=== PATIENT | male | born 1975 | race Caucasian/White ===

== ENCOUNTER 2019-12-21 12:09 | Emergency (ER) | payer OTHER, SELFPAY ==
--- NOTE | ~2019-12-21 | XR_ITS ---
EXAMINATION: XR chest 2V DATE: 12/21/2019 12:52 INDICATION: Cough. TECHNIQUE: Frontal and lateral views of the chest were obtained. COMPARISON: None. FINDINGS: The chest demonstrates clear lungs without pneumonia, pleural effusion, or pneumothorax. Th e heart size is normal. IMPRESSION: 1. No acute cardiopulmonary disease. Reviewed, dictated and finalized at location A. [employer]
[2019-12-21 12:24] VITALS: BP 151/85; PULSE 77; RESP 16; TEMP 36.9; O2SAT 98
--- NOTE | 2019-12-21 12:56 | ED.URI ---
HPI - URI/Sore Throat General Chief Complaint: Upper Respiratory Infection Stated Complaint: Cold/Flu symptoms Time Seen by Provider: 12/21/19 12:36 Source: patient and RN notes reviewed Mode of arrival: ambulatory Limitations: no limitations History of Present Illness HPI Narrative: Patient presents today with a 3-month history of productive cough, nasal congestion and sinus pressure, headache, fatigue, back pain, chest wall pain. Symptoms have been persistent for the past 3 months, but wax and wane. He was seen on 10/19/2019 at the [facility], where he was diagnosed with pharyngitis, with a negative strep test, and given prescription for prednisone and naproxen. Patient states medications did not help with his symptoms. He is unsure if he has had a fever. He has been taking ibuprofen. He is a non-smoker. He does not vape. He has not followed up with his PCP since his last urgent care visit. MD elicited complaint: cough Related Data Allergies Allergy/AdvReac Type Severity Reaction Status Date / Time Penicillins Allergy Unknown Anaphylaxis Verified 10/19/19 12:51 Review of Systems Review of Systems: Narrative: CONSTITUTIONAL: Denies fever, chills, or sweats.+ Fatigue, body aches EYES: Denies visual changes, redness, or discharge. ENT: Denies rhinorrhea, sore throat, or otalgia.+ Congestion, sinus pressure CARDIOVASCULAR: Denies chest pain, palpitations, or edema. RESPIRATORY: Denies dyspnea. Cough GASTROINTESTINAL: Denies abdominal pain, nausea, vomiting, or diarrhea. GENITOURINARY: Denies dysuria or hematuria. SKIN: Denies rash, itching, or wounds. MUSCULOSKELETAL: Denies back pain, joint pain, or myalgia. NEUROLOGIC: Denies numbness, tingling, or weakness.+ Headache PSYCH: Denies depression or anxiety. PMFSH Social History Social History Smoking status: Never smoker Alcohol intake: current Comments At time of signature, I have reviewed and agree with nursing past medical, surgical, social and family history unless otherwise noted. Please see nursing chart for further information. There is no relevant family history pertinent to the presenting complaint Exam Narrative: Exam Narrative: GENERAL: Mildly ill-appearing, well-nourished, and in no acute distress. HEAD: Normocephalic, atraumatic. EYES: EOMI. No redness or drainage. Conjunctivae normal. ENT: Mucous membranes pink and moist. Nares congested. No rhinorrhea. TMs normal bilaterally. Throat normal. Uvula midline. NECK: Normal AROM. Supple. No lymphadenopathy. CHEST: No respiratory distress. Clear to auscultation. Occasional cough noted. HEART: Regular rate and rhythm. No murmur appreciated. Normal peripheral pulses. EXTREMITIES: Normal range of motion. No edema. SKIN: Warm, dry, no rash. NEURO: No focal deficits. Alert and oriented x3. Gait steady. PSYCH: Normal affect. No signs of depression or anxiety. Course Vital Signs Vital signs: Reviewed. Pt has been instructed to follow up with his PCP regarding his elevated blood pressure today. MDM - URI/Sore Throat Differential Diagnosis Differential diagnosis: Likely upper respiratory infection, sinusitis, viral infection, bronchitis and other (Pneumonia) Imaging Data Radiologist's impression: ITS Impressions Chest X-Ray 12/21/19 12:55 IMPRESSION: 1. No acute cardiopulmonary disease. Critical Care Time Critical Care Time Critical Care Time: No Discharge Plan Discharge Clinical Impression: Bronchitis Sinusitis Qualifiers: Sinusitis location: unspecified location Chronicity: acute Recurrence: not specified as recurrent Qualified Code(s): J01.90 - Acute sinusitis, unspecified Patient Disposition: Home, Self-Care Condition: Stable Instructions: Antibiotic Form, Sinusitis (ED), Acute Bronchitis (ED) Additional Instructions: Your chest x-ray is negative for pneumonia today. Please take the doxycy
== END 2019-12-21 13:15 | disposition home or self-care (01) ==
PROVIDERS: Emergency Provider Nurse Practitioner; PCP Family Medicine
DX: J40 Bronchitis, not specified as acute or chronic (principal); J01.90 Acute sinusitis, unspecified
CPT/HCPCS: 71046; 99213; G0463

== ENCOUNTER 2021-04-19 13:42 | Outpatient (CLI) | payer OTHER, SELFPAY ==
--- NOTE | ~2021-04-19 | XR_ITS ---
XR chest 2V DATE: 04/19/2021 14:02 INDICATION: Cough, right anterior chest pain. TECHNIQUE: PA and lateral views COMPARISON: 12/21/2021 view chest FINDINGS: Borderline heart size. Mild elevation of right leaf of diaphragm. No pulmonary infiltrate or consolidation, pleural effusion or pulmonary vascular congestion or pneumo thorax. Included skeletal structures are unremarkable. IMPRESSION: Borderline heart size; no active pulmonary disease Reviewed, dictated and finalized at location A.
== END 2021-04-19 13:43 | disposition home or self-care (01) ==
LOC: ANHIMG 13:46
PROVIDERS: PCP Family Medicine; Visit Provider Family Medicine
DX: R05 Cough (principal); R07.89 Other chest pain
CPT/HCPCS: 71046

== ENCOUNTER 2022-03-05 10:53 | Emergency (ER) | payer OTHER, SELFPAY ==
[2022-03-05 11:01] VITALS: BP 153/89; PULSE 110; RESP 16; TEMP 36.7; O2SAT 98
--- NOTE | 2022-03-05 11:01 | ED.URI ---
HPI - URI/Sore Throat General Chief Complaint: Upper Respiratory Infection Stated Complaint: Sore Throat Time Seen by Provider: 03/05/22 11:01 Source: patient, family, RN notes reviewed and old records reviewed Mode of arrival: ambulatory Limitations: no limitations History of Present Illness HPI Narrative: 47-year-old male presents to the [facility] with a sore throat since March 02, 3 days ago. Had taken ibuprofen 1 time yesterday. States that it feels like I am swallowing razor blades. Denies fevers. No chest pain or abdominal pain. No nausea vomiting or diarrhea. MD elicited complaint: sore throat Related Data Home Medications Medication Instructions Recorded Confirmed omeprazole 20 mg capsule,delayed 20 mg PO DAILY 02/10/21 03/05/22 release Allergies Allergy/AdvReac Type Severity Reaction Status Date / Time Penicillins Allergy Severe Anaphylaxis Verified 03/05/22 11:11 Review of Systems Review of Systems: All systems reviewed & are unremarkable except as noted in HPI and below Constitutional: Constitutional: Reports no additional constitutional complaints, Denies chills, Denies fever(s) and Denies headache(s) Eyes: Eyes: Reports no additional eye complaints ENT: Reports as per HPI, Denies vertigo, Denies dizziness, Denies headache(s), Denies nasal congestion and Reports sore throat Cardiovascular: Cardiovascular: Reports no additional cardiovascular complaints, Denies chest pain, Denies syncope, Denies rapid heart rate and Denies dyspnea Respiratory: Respiratory: Reports no additional respiratory complaints, Denies cough, Denies dyspnea and Denies wheezing Gastrointestinal: Gastrointestinal: Reports no additional gastrointestinal complaints, Denies abdominal pain, Denies diarrhea, Denies nausea and Denies vomiting Musculoskeletal: Musculoskeletal: Reports no additional musculoskeletal complaints and Denies numbness Integumentary/Breasts: Skin/Breast: Reports system reviewed and no additional complaints, except as docu Neurologic: Reports system reviewed and no additional complaints, except as documented, Denies vertigo, Denies dizziness, Denies syncope, Denies headache(s), Denies focal weakness and Denies numbness Psychiatric: Psychiatric: Reports no additional psychiatric complaints Allergic/Immunologic: Allergic/Immunologic: Reports no additional allergic/immunologic complaints and Denies wheezing PMFSH Past Medical History Medical History Alcohol abuse Depression GERD (gastroesophageal reflux disease) HTN (hypertension) Family History Family History Father Depression Patient's father is in good health RAMBO (obstructive sleep apnea) Mother Family history of alcoholism Sibling Patient's sister is in good health Grandparent Heart disease Social History Social History Social History: Second hand tobacco smoke exposure: No Alcohol intake: current Drinks per week: 2 Substance use: never Substance use type: does not use Additional occupation/education comments: [employer] Gender identity (if verbalized by the patient): Male Comments At the time of my signature, I reviewed and agree with the nursing past medical, surgical, social, and family history. There is no relevant family history pertinent to the patient complaint. Exam Const: General: cooperative, healthy appearing, no acute distress, well developed and alert Nutritional Appearance: well nourished Orientation/consciousness: patient oriented x3 Limitations: no limitations HENMT: Head: normal to inspection Ears: external ears normal, TM's normal bilaterally and EAC's normal General nose exam: Normal external nose present and Normal nasal mucous membranes and turbinates present Face and sinus: normal facial exam Mouth: Yes Normal oral and p
== END 2022-03-05 11:32 | disposition home or self-care (01) ==
PROVIDERS: Emergency Provider Nurse Practitioner; PCP Family Medicine
DX: K12.2 Cellulitis and abscess of mouth (principal); K21.9 Gastro-esophageal reflux disease without esophagitis; I10 Essential (primary) hypertension
CPT/HCPCS: 87081; 87880; 99213; G0463

== ENCOUNTER 2023-06-27 07:14 | Outpatient (CLI) | payer OTHER, SELFPAY ==
--- NOTE | 2023-06-27 07:47 | ECG_ITS ---
Measurements Intervals [place] Rate: 80 P: 29 VA: 170 QRS: 6 QRSD: 103 T: 30 QT: 380 QTc: 439 Interpretive Statements SINUS RHYTHM INDETERMINATE AXIS PATTERN CONSISTENT WITH PULMONARY DISEASE ABNORMAL ECG NO PREVIOUS ECG AVAILABLE FOR COMPARISON Electronically Signed On 06-27-2023 9:17:56 CDT by Bhanu Dial M.D.
[2023-06-27 08:12] LABS: Potassium 3.5 mmol/L (3.4-5.0)
[2023-06-27 08:19] LABS: Anion Gap 6 mmol/L (8-16); Blood Urea Nitrogen 7 mg/dL (9-20); Calcium 8.7 mg/dL (8.4-10.2); Carbon Dioxide 29 mmol/L (22-30); Chloride 97 mmol/L (98-107); Estimated Glomerular Filt Rate > 60; Glucose 236 mg/dL (65-110); Sodium 132 mmol/L (137-145)
== END 2023-06-27 07:15 | disposition home or self-care (01) ==
PROVIDERS: PCP Family Medicine; Referring Provider Anesthesiology; Visit Provider Surgery
DX: Z01.818 Encounter for other preprocedural examination (principal); I10 Essential (primary) hypertension; E11.9 Type 2 diabetes mellitus without complications; K42.9 Umbilical hernia without obstruction or gangrene; R94.31 Abnormal electrocardiogram [ECG] [EKG]
CPT/HCPCS: 36415; 80048; 86850; 86900; 86901; 93005

== ENCOUNTER 2023-07-02 04:18 | Day surgery (SDC) | payer OTHER, SELFPAY ==
--- NOTE | 2023-06-24 15:34 | PC.NURSE ---
Addendum entered by Cristi Ayala RN 06/25/23 15:34: 06/25/[address] casarez about holding ozempic, patient originally was told to hold, but dr casarez was ok with him resuming his weekly shot to help control blood sugars. patient was notified of this change and will take his weekly ozempic Original Note: Report to the Outpatient Waiting Room, entrance under the green pavilion located off [facility], at time _0830 on date _07/02/23 Planned Procedure Time: 1030. Time changes happen often and if your time is changed the preop area will call you the afternoon before. - You and your visitor will be asked to self-screen and do not enter if you have any COVID symptoms. - A mask is optional within the hospital at this time. Patients may have clear liquids (water, carbonated beverages, clear teas, apple juice) until 3 hours prior to surgery with a maximum of 20 ounces. - No food from midnight until time of surgery - Infants may have breast milk until 4 hours before surgery, formula 6 hours prior to surgery. - Children will be allowed to drink immediately following surgery. If applicable, please bring a bottle or sippy cup to assist with drinking. Juice, water, soda, and popsicles are readily available. For infants on formula, please bring formula the day of surgery. Pacifiers are allowed. Take the following medications with a SIP of water the morning of surgery: _n/a DO NOT STOP ANY OF YOUR OTHER PRESCRIPTION MEDICATIONS PRIOR TO SURGERY ?EXCEPT THE FOLLOWING Medications to discontinue per physician __ozempic Date to take last dose__06/21/23 Please no make-up, nail wolof, hairspray, perfume, deodorant, or body powder the day of surgery. No jewelry (including any body piercings) or valuables the day of surgery, leave them at home. Please take a shower or bath the night before, or the morning of, surgery with an antibacterial soap(Hibiclens soap). Wear comfortable, loose fitting clothing. Children are encouraged to wear pajamas. - Jewelry must be removed prior to entering the operating room. Rings and piercings that are not removed may be cut off. - The hospital will not accept responsibility for valuables. - Please leave all valuables, including medications, at home the day of surgery. If you are going home after surgery, a licensed test driver must drive you home. - NO public transportation without another adult if you receive anesthesia. - We recommend that an adult stay with you for 24 hours following discharge. - We also recommend that you do not drive, make important decision, drink alcoholic beverages, or take any drugs that were not prescribed by your health care provider for at least 24 hours after your discharge time. For Pediatric surgeries, we recommend two adults accompany the child home. Follow any additional instructions given to you from your surgeon. If you or anyone in your household have experienced Covid symptoms in the past week, please notify your surgeon or the nurse liaison at the phone number below for possible testing. Telephone instructions given to Ivanna Luna and asked if any additional questions and then verbalized understanding. Patient advised to call surgeon office or pre surgery nurse liaison [phone] if any additional questions.
[2023-07-02] VITALS (8 sets, daily range): BP systolic 115–139; BP diastolic 80–95; PULSE 84–117; RESP 14–25; TEMP 36.1–36.8; O2SAT 92–96; BMI 41.1
[2023-07-02] MEDS: LACTATED RINGERS 1,000 ML 30 ML IV CONT (09:05)
[2023-07-02 09:15] LABS: Glucose Point of Care 222 mg/dl (65-105)
[2023-07-02] MEDS: KETOROLAC 15 MG/ML VIAL (*BKC) IV PUSH (09:19)
[2023-07-02] MEDS: ACETAMINOPHEN 500 MG TABLET 1000 MG PO (09:19)
--- NOTE | 2023-07-02 09:19 | WPDHPUPDATE1 ---
History and Physical Update Update Date/Time: 07/02/23 09:19 History and Physical has been reviewed, including an updated exam of the patient. There are NO changes in the patient's condition. Risks, benefits, and alternatives have been discussed and questions answered. Patient agrees to proceed with procedure.
--- NOTE | 2023-07-02 09:20 | SUR.PREOP ---
0920-Notified Dr. Lindo patient's BG checked and found to be elevated at 222. Patient reports he is currently taking Ozempic at home and ran out of his home supply. Per Dr. Lindo no additional orders at this time.
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
[2023-07-02] MEDS: ceFAZolin 3 GM/D5W 100 ML 100 ML IVPB (09:50)
[2023-07-02] MEDS: BUPIVACAINE/EPINEPHRINE 0.25% 10 ML VIAL 30 ML INFILTRATE (10:41)
--- NOTE | 2023-07-02 11:28 | W.PM.PROC2 ---
Procedure Note - Detailed Date of Procedure 07/02/23 Pre-op Diagnosis Umbilical Hernia Post-op Diagnosis Same (2 cm umbilical hernia) Procedure Performed Laparoscopic 2 cm umbilical hernia repair with mesh, da Niall assisted Surgeon Theo Hernandez DO Anesthesia General and Local (Exparel) Indications This is a 48-year-old who presented with an umbilical bulge that he noticed several years ago. It has gradually increased in size and is causing more pain. He was initially seen by my partner about 2 years ago and his BMI was 45 at that time. He has lost some weight and his BMI is down to 41. Discussions were made with the patient about further weight loss versus proceeding with surgery. Since he is having more symptoms with this he wished to proceed with surgery. Have recommended proceeding with laparoscopic umbilical hernia repair with mesh, da Niall assisted. Findings Laparoscopic umbilical hernia repair was performed. The patient was found have a 2 cm umbilical hernia containing preperitoneal fat. A robotic transabdominal preperitoneal approach was utilized for repair. The fascia was closed using 0 Stratafix running absorbable suture. A Ventralight ST 15 cm x 10 cm mesh was then placed within the preperitoneal pocket and secured to the abdominal wall. No other abnormalities were noted. No specimens were obtained for pathology. Description of Procedure Procedure as well as risks, benefits, and alternatives were discussed with the patient. Written consent was obtained and placed in chart prior to procedure. Patient was brought back to surgical suite. He was placed supine on operating table. Time-out was done to confirm patient and procedure. He was then intubated by the anesthesia department. A bump was placed under his left hip, and the bed was flexed slightly to extend the space between his costal margin and iliac crest. His abdomen was prepped and draped in sterile fashion using chlorhexidine prep. A 5 millimeter incision was made in the left upper quadrant, and a 5 millimeter Optiview trocar was advanced through the abdominal layers under direct visualization. Once inside the abdominal cavity, carbon dioxide insufflation was used to create a pneumoperitoneum. His abdomen was inspected. An 8 millimeter incision was made in the left lower quadrant, and an 8 millimeter robotic trocar was placed under direct visualization. Another 8 millimeter incision was made in the left lateral abdomen, and an 8 millimeter robotic trocar was placed under direct visualization. The 5 millimeter port was removed, and an 8 mm port was placed in its position. The robotic arms were brought up to the patient's bedside and secured to the ports. The camera and instruments were inserted, and I then moved over to the robotic console and took control of the camera and instruments. After careful thorough inspection of the abdominal cavity, I began my dissection at the hernia. A preperitoneal plane was dissected beginning along the upper quadrant and extended to the left lower quadrant. The space was then developed medially and the hernia sac was reduced. I then continued this dissection within the preperitoneal plane out to the right lateral abdomen. I then measured the hernia size. The hernia measured 2 cm. The fascia was closed using an 0-Stratafix running suture in a vertical fashion. A Ventralight ST 15 cm x 10 cm mesh was then placed within the preperitoneal pocket. This was oriented vertically with the mesh centered on the hernia defect. The mesh was then secured at the 4 corners and center of the mesh using 3-0 Vicryl simple interrupted sutures. The peritoneum was then closed back over the mesh using 3 0 V lock running absorbable suture. The repair was inspected, and one final inspection was made around the abdominal cavity. The robotic instruments were then removed, and the robotic arms were disengaged from the trocars. The ports were then removed under d
[2023-07-02 11:57] LABS: Glucose Point of Care 207 mg/dl (65-105)
[2023-07-02] MEDS: oxyCODONE HCL (*CRX) 5 MG TAB IR PO (12:56)
== END 2023-07-02 13:45 | disposition home or self-care (01) ==
PROVIDERS: PCP Family Medicine; Visit Provider Surgery
PROC: (CPT 49591; principal; 2023-07-02 10:30)
DX: K42.9 Umbilical hernia without obstruction or gangrene (principal); I10 Essential (primary) hypertension; E78.2 Mixed hyperlipidemia; E11.9 Type 2 diabetes mellitus without complications; K21.9 Gastro-esophageal reflux disease without esophagitis; E66.01 Morbid (severe) obesity due to excess calories; Z68.41 Body mass index [BMI] 40.0-44.9, adult; Z79.899 Other long term (current) drug therapy
CPT/HCPCS: 49591; S2900; 36415; 80048; 82948; 86850; 86900; 86901; 93005; A9270; C1781; J0690; J1170; J1885; J2250; J2405; J2704; J3010; J7120

== ENCOUNTER 2023-11-02 14:42 | Emergency (ER) | payer OTHER, SELFPAY ==
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
[2023-11-02 15:11] VITALS: BP 137/104; PULSE 140; RESP 18; TEMP 39.2; O2SAT 97
== END 2023-11-02 15:51 | disposition home or self-care (01) ==
PROVIDERS: Emergency Provider Nurse Practitioner; PCP Family Medicine
DX: U07.1 COVID-19 (principal); E11.9 Type 2 diabetes mellitus without complications; I10 Essential (primary) hypertension; E78.2 Mixed hyperlipidemia
CPT/HCPCS: 99213; G0463

== ENCOUNTER 2024-01-24 11:54 | Outpatient (CLI) | payer OTHER, SELFPAY ==
[2024-01-24 12:09] LABS: Basophils Percent Auto 0.5 % (0.2-1.2); Eosinophils Absolute Auto 0.1 K/mm3 (0-0.3); Eosinophils Percent Auto 1.4 % (0-4.4); Hematocrit 44.3 % (42.0-52.0); Hemoglobin 15.3 g/dL (14.0-18.0); Immature Granulocyte Absolute 0.03 K/mm3 (0.00-0.031); Immature Granulocyte Percent A 0.4 % (0-0.5); Lymphocytes Absolute Auto 2.55 K/mm3 (0.9-3.2); Lymphocytes Percent Auto 30.5 % (18.3-44.2); Mean Corpuscular HGB Conc 34.5 g/dl (32-36); Mean Corpuscular Hemoglobin 34.4 pg (26-34); Mean Corpuscular Volume 99.6 fl (80-100); Mean Platelet Volume 9.1 fl (7.4-10.4); Monocytes Absolute Auto 0.5 K/mm3 (0.1-0.6); Monocytes Percent Auto 6.1 % (2.6-8.5); Neutrophils Absolute Auto 5.1 K/mm3 (1.3-6.7); Neutrophils Percent Auto 61.1 % (45.5-73.1); Platelet Count Result 258 k/mm3 (150-375); Red Blood Count 4.45 M/mm3 (4.6-6.20); Red Cell Distribution Width 12.3 % (11.5-14.5); White Blood Count 8.4 K/mm3 (4.5-10.0)
[2024-01-24 12:29] LABS: Alanine Aminotransferase 25 U/L (6-50); Albumin Level 4.3 g/dL (3.5-5.1); Alkaline Phosphatase 93 U/L (38-126); Amylase 49 U/L (30-110); Anion Gap 8 mmol/L (8-16); Aspartate Amino Transferase 40 U/L (17-59); Bilirubin,Total 1.2 mg/dL (0.2-1.3); Blood Urea Nitrogen 9 mg/dL (9-20); Calcium 9.4 mg/dL (8.4-10.2); Carbon Dioxide 27 mmol/L (22-30); Chloride 103 mmol/L (98-107); Estimated Glomerular Filt Rate > 60; Glucose 118 mg/dL (65-110); Lipase 42 U/L (23-300); Sodium 138 mmol/L (137-145)
== END 2024-01-24 11:55 | disposition home or self-care (01) ==
LOC: ANHLAB 11:56
PROVIDERS: PCP Family Medicine; Visit Provider Family Medicine
DX: R11.0 Nausea (principal); R19.7 Diarrhea, unspecified; E78.2 Mixed hyperlipidemia; I10 Essential (primary) hypertension
CPT/HCPCS: 36415; 80053; 82150; 83690; 85025

== ENCOUNTER 2024-05-20 06:30 | Emergency (ER) | payer OTHER, SELFPAY ==
[2024-05-20] VITALS (16 sets, daily range): BP systolic 123–149; BP diastolic 85–95; PULSE 74–85; RESP 13–21; TEMP 36.6; O2SAT 95–99
--- NOTE | ~2024-05-20 | XR_ITS ---
EXAMINATION: XR chest 2V DATE: 05/20/2024 07:44 INDICATION: Left lower quadrant abdominal pain TECHNIQUE: PA and lateral views of the chest were obtained. COMPARISON: Chest radiograph dated 04/19/2021 FINDINGS: 1 cm nodular opacity projecting over the lateral right lung base. No other airspace opacities, pulmon doretha edema, pleural effusion or pneumothorax. The cardiomediastinal silhouette is normal. Mild thoraci c spondylosis. IMPRESSION: 1. Indeterminate 1 cm nodular opacity projecting over the lateral right lung base. Recommend follow-u p low-dose noncontrast chest CT. No other acute cardiopulmonary disease. Reviewed, dictated and finalized at location B. IMPRESSION: 1. Indeterminate 1 cm nodular opacity projecting over the lateral right lung ba se. Recommend follow-up low-dose noncontrast chest CT. No other acute cardiopul monary disease.
--- NOTE | ~2024-05-20 | CT_ITS ---
EXAMINATION: CT abdomen pelvis w con DATE: 05/20/2024 07:56 INDICATION: Left lower quadrant abdominal pain. TECHNIQUE: Computed tomography (CT) of the abdomen and pelvis was performed without intravenous contr ast. Automated exposure control and iterative reconstruction technique were employed. The dose-length product was 1481.36 mGy-cm. COMPARISON: None. FINDINGS: The visualized portions of the lung bases demonstrate mild atelectasis. No pleural effusion . The heart size is normal. No pericardial effusion. There is a small sliding hiatal hernia. There is a 9 mm cyst in the liver. The gallbladder, spleen, pancreas, adrenal glands, and kidneys are normal. There is diverticulosis of the colon without evidence of diverticulitis. The appendix is normal. The re are no dilated loops of bowel. There is mild fat stranding at the root of the small bowel mesenter y. There are no pathologically enlarged lymph nodes. There is no free intraperitoneal fluid. There is a left inguinal hernia containing fat. There is a benign bone island in left 12th rib. There is mild thoracic and lumbar spondylosis. There is mild chronic anterior wedging of T11 and T12 vertebral bod ies. IMPRESSION: 1. Small sliding hiatal hernia. 2. Left inguinal hernia containing fat. Reviewed, dictated and finalized at location A.
--- NOTE | 2024-05-20 06:34 | ECG_ITS ---
Test Date: 2024-05-20 06:37:44 Measurements Intervals [place] Rate: 75 P: 50 MT: 175 QRS: 18 QRSD: 100 T: 34 QT: 392 QTc: 438 Interpretive Statements SINUS RHYTHM DELAYED PRECORDIAL R/S TRANSITION MINIMAL Q WAVES- INFERIOR LEADS BORDERLINE ECG No previous ECG available for comparison Electronically Signed On 05-20-2024 10:49:05 CDT by Raymundo Velazquez D.O.
[2024-05-20] MEDS: ASPIRIN 81 MG CHEWABLE TABLET 324 MG PO (06:44)
[2024-05-20 07:01] LABS: Basophils Percent Auto 0.7 % (0.2-1.2); Eosinophils Absolute Auto 0.1 K/mm3 (0-0.3); Eosinophils Percent Auto 1.5 % (0-4.4); Hematocrit 41.7 % (42.0-52.0); Hemoglobin 14.7 g/dL (14.0-18.0); Immature Granulocyte Absolute 0.04 K/mm3 (0.00-0.031); Immature Granulocyte Percent A 0.7 % (0-0.5); Lymphocytes Absolute Auto 2.53 K/mm3 (0.9-3.2); Lymphocytes Percent Auto 43.1 % (18.3-44.2); Mean Corpuscular HGB Conc 35.3 g/dl (32-36); Mean Corpuscular Hemoglobin 35.4 pg (26-34); Mean Corpuscular Volume 100.5 fl (80-100); Mean Platelet Volume 9.7 fl (7.4-10.4); Monocytes Absolute Auto 0.5 K/mm3 (0.1-0.6); Neutrophils Absolute Auto 2.6 K/mm3 (1.3-6.7); Platelet Count Result 268 k/mm3 (150-375); Red Blood Count 4.15 M/mm3 (4.6-6.20); White Blood Count 5.9 K/mm3 (4.5-10.0)
[2024-05-20 07:11] LABS: INR 1.1; Prothrombin Time 14.5 Seconds (11.1-14.7)
[2024-05-20 07:12] LABS: Partial Thromboplastin Time 25.4 Seconds (22.3-36.8)
[2024-05-20 07:14] LABS: Alanine Aminotransferase 35 U/L (6-50); Albumin Level 4.4 g/dL (3.5-5.1); Alkaline Phosphatase 83 U/L (38-126); Anion Gap 8 mmol/L (4-12); Aspartate Amino Transferase 47 U/L (17-59); Bilirubin,Total 1.1 mg/dL (0.2-1.3); Blood Urea Nitrogen 11 mg/dL (9-20); Calcium 8.7 mg/dL (8.4-10.2); Carbon Dioxide 22 mmol/L (22-30); Chloride 106 mmol/L (98-107); Estimated CRCL calculation 134 ml/min; Estimated Glomerular Filt Rate > 60; Glucose 148 mg/dL (65-110); Lipase 57 U/L (23-300); Potassium 4.2 mmol/L (3.4-5.0); Sodium 136 mmol/L (137-145)
[2024-05-20 07:24] LABS: Troponin I < 0.012 ng/mL (0.000-0.034)
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
[2024-05-20 10:06] LABS: Troponin I < 0.012 ng/mL (0.000-0.034)
== END 2024-05-20 10:24 | disposition home or self-care (01) ==
PROVIDERS: Student in an Organized Health Care Education/Training Program; Emergency Provider Emergency Medicine; PCP Family Medicine
DX: R07.9 Chest pain, unspecified (principal); K21.9 Gastro-esophageal reflux disease without esophagitis; I10 Essential (primary) hypertension; E78.2 Mixed hyperlipidemia
CPT/HCPCS: 36415; 71046; 74177; 80053; 83690; 84484; 85025; 85610; 85730; 93005; 99284; A9270; Q9967

== ENCOUNTER 2025-09-30 12:01 | Outpatient (CLI) | payer OTHER, SELFPAY ==
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
== END 2025-09-30 12:02 | disposition home or self-care (01) ==
PROVIDERS: PCP Family Medicine; Visit Provider Physician Assistant
DX: M47.814 Spondylosis without myelopathy or radiculopathy, thoracic region (principal); M47.816 Spondylosis without myelopathy or radiculopathy, lumbar region; S13.4XXA Sprain of ligaments of cervical spine, initial encounter; V89.2XXA Person injured in unspecified motor-vehicle accident, traffic, initial encounter
CPT/HCPCS: 72040; 72070; 72100